=== PATIENT | female | born 1930 ===

== ENCOUNTER 2017-06-24 10:43 | Outpatient (RCR) | payer MEDICARE, OTHER | END 2017-06-25 | disposition home or self-care (01) | LOC: PTY 10:43 | DX: M75.102 Unspecified rotator cuff tear or rupture of left shoulder, not specified as traumatic (principal) | CPT/HCPCS: 97110; 97140; 97162; G0283; G8984; G8985 ==

== ENCOUNTER 2017-07-24 09:45 | Outpatient (RCR) | payer MEDICARE, OTHER | END 2017-07-26 | disposition home or self-care (01) | LOC: PTY 09:45 | DX: M75.102 Unspecified rotator cuff tear or rupture of left shoulder, not specified as traumatic (principal) | CPT/HCPCS: 97110; 97140; G0283 ==

== ENCOUNTER 2017-08-24 10:30 | Outpatient (RCR) | payer MEDICARE, OTHER | END 2017-08-26 | disposition home or self-care (01) | LOC: PTY 10:30 | DX: M75.102 Unspecified rotator cuff tear or rupture of left shoulder, not specified as traumatic (principal) | CPT/HCPCS: 97110; 97140; G0283; G8984; G8985 ==

== ENCOUNTER 2017-09-14 10:00 | Outpatient (RCR) | payer MEDICARE, OTHER | END 2017-09-23 | disposition home or self-care (01) | LOC: PTY 10:00 | DX: M75.102 Unspecified rotator cuff tear or rupture of left shoulder, not specified as traumatic (principal) | CPT/HCPCS: 97110; 97140; G0283 ==

== ENCOUNTER 2017-10-26 10:30 | Outpatient (RCR) | payer MEDICARE, OTHER | END 2017-11-23 | disposition home or self-care (01) | LOC: PTY 10:30 | DX: M75.102 Unspecified rotator cuff tear or rupture of left shoulder, not specified as traumatic (principal) ==

== ENCOUNTER 2017-12-07 09:24 | Outpatient (RCR) | payer MEDICARE, OTHER | END 2017-12-24 | disposition home or self-care (01) | LOC: PTY 09:24 | DX: M75.102 Unspecified rotator cuff tear or rupture of left shoulder, not specified as traumatic (principal) | CPT/HCPCS: 97032; 97110; 97140; G8985; G8986 ==

== ENCOUNTER 2018-03-12 10:00 | Outpatient (RCR) | payer MEDICARE, OTHER | END 2018-03-26 | disposition home or self-care (01) | LOC: PTY 10:00 | DX: M75.102 Unspecified rotator cuff tear or rupture of left shoulder, not specified as traumatic (principal) | CPT/HCPCS: 97032; 97110; 97140; 97162; G8979; G8984 ==

== ENCOUNTER 2018-04-01 11:00 | Outpatient (RCR) | payer MEDICARE, OTHER | END 2018-04-25 | disposition home or self-care (01) | LOC: PTY 11:00 | DX: M75.102 Unspecified rotator cuff tear or rupture of left shoulder, not specified as traumatic (principal) | CPT/HCPCS: 97032; 97110; 97140; G0283 ==

== ENCOUNTER 2018-04-30 10:00 | Outpatient (RCR) | payer MEDICARE, OTHER | END 2018-05-26 | disposition home or self-care (01) | LOC: PTY 10:00 | DX: M75.102 Unspecified rotator cuff tear or rupture of left shoulder, not specified as traumatic (principal) | CPT/HCPCS: 97110; 97140; G0283 ==

== ENCOUNTER 2018-06-04 10:00 | Outpatient (RCR) | payer MEDICARE, OTHER | END 2018-06-25 | disposition home or self-care (01) | LOC: PTY 10:00 | DX: M75.102 Unspecified rotator cuff tear or rupture of left shoulder, not specified as traumatic (principal) ==